=== PATIENT | male | born 2000 | race Caucasian/White ===

== ENCOUNTER 2024-11-23 19:26 | Outpatient (CLI) | payer OTHER, SELFPAY | END 2024-11-23 19:27 | disposition home or self-care (01) | PROVIDERS: Visit Provider Physician Assistant Medical | DX: F10.939 Alcohol use, unspecified with withdrawal, unspecified (principal); R07.89 Other chest pain | CPT/HCPCS: 80076 ==

== ENCOUNTER 2024-11-27 20:09 | Emergency (ER) | payer OTHER, SELFPAY ==
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
--- OUTSIDE RECORDS SUMMARY | 2024-11-27 20:11 | XMS_ITS | Clinical Summary ---
Author Organization [employer] [facility] Address [address] [place] [address] Care Team Providers Care Compliance Engineer Name Role Phone Clinic, No Pcp Or Primary Care Provider Unavaila ble Allergies No known active allergies Medications No known medications Social History Tobacco Use Types Packs/Day Years Used Date Smoking Tobacco: Never Smokeless Tobacco: Never Alcohol Use Standard Drinks/Week Comments Not Asked 0 (1 standard drink = 0.6 oz pur e alcohol) Sex and Gender Information Value Date Recorded Sex Assigned at Not on file Legal Sex Male 8:15 AM ORTHOTICS TECHNICIAN Gender Identity Not on file Sexual Orientation Not on file Obstetrics History Last Filed Vital Signs Vital Sign Reading Time Taken Comments Blood Pressure 134/80 05/04/2020 3:01 PM ORTHOTICS TECHNICIAN Pulse 106 05/04/2020 3:01 PM ORTHOTICS TECHNICIAN Temperature 36.5 C (97.7 F) 05/04/2020 3:01 PM ORTHOTICS TECHNICIAN Respiratory Rate 16 05/04/2020 3:01 PM ORTHOTICS TECHNICIAN Oxygen Saturation 97% 05/04/2020 3:01 PM ORTHOTICS TECHNICIAN Inhaled Oxygen Concentration - - Weight 103.4 kg (228 lb) 05/04/2020 3:00 PM ORTHOTICS TECHNICIAN Height - - Body Mass Index - - Plan of Treatment Health Maintenance Due Date Last Done Comments Tdap 2009 Depression screening for age 12+ 2010 HIV for age 15-65 2013 HPV series for age 9-26 (1 - Male 3-dose series) 2013 BMI (ht and wt on same day) for age 18+ 2016 Hepatitis C screening for ag e 18-79 2016 Hepatitis B series for 19+ ( 1 of 3 - 19+ 3-dose series) 2017 Tetanus booster 2018 COVID-19 vaccine series (2023-25 season) 2024 Influenza Vaccine (Season Ended) 2025 Pneumococcal series for age 6-49 Aged Out No longer eligible based on patient's age to complete this topic Insurance [facility] [employer] * Guarantor: SP [employer]AYL[employer] Account Type Relation to Patient Date of Phone Billing Address Personal/Family [address] [address] Care Teams Compliance Engineer Relationship Specialty Start Date End Date Clinic, No Pcp Or . PCP - General 04/30/20
[2024-11-27 20:49] VITALS: BP 138/84; PULSE 88; RESP 16; TEMP 36.9; O2SAT 98; BMI 29.8
--- NOTE | 2024-11-27 22:13 | ED.GENADULT ---
HPI - General Adult General Time Seen by Provider: 21:45 Date Seen: 11/27/24 Chief complaint: Unspecified Complaint, Adult Stated complaint: Alcohol DT Time Seen by Provider: 11/27/24 21:14 Source: patient and family Mode of arrival: ambulatory History of Present Illness HPI narrative: Patient is a 24 male with history of alcohol use who presents the emergency department for evaluation of alcohol withdrawals. Patient reports symptoms increased blood pressure, shakiness, chest pain, shortness of breath. Patient states he does have a history of alcohol use typically drinks approximately 15 beers a day however states that his last use was approximately 2 weeks ago. Patient states that since this time he has had intermittent episodes with the police are panic attacks, anxiety. Patient was seen at urgent care last Tuesday as well as earlier today due to episodes shakiness, chest pain, shortness of breath, elevated blood pressure. Patient was started on clonidine twice a day, and hydroxyzine as needed. Patient denies any history alcohol withdrawal seizures, DTs. Patient reports he continues to denies any other substance use. Patient states he has been able to get through the past 2 weeks without drinking without problems. Patient states he does not believe he is in alcohol withdrawals however his family and friends wanted him to come in. Patient does report he has had lots of stress with his girlfriend, recently found out that her ex was living with her, and they broke up yesterday. Patient reports increased depression, anxiety, and a broken heart. Patient denies any suicide ideation or plan however does note that he would like something to numb everything, and sometimes thinks whats the point. No other acute medical complaints. Patient reports having comprehensive labs at Urgent Care today which were all normal, patient was treated with 1 L of IV fluids as well as Benadryl which help lower his blood pressure and help him sleep. Patient also reports workup done last Tuesday at urgent care which was normal as well. Related Data Previous Rx's ?Medication ?Instructions ?Recorded clonidine HCl 0.1 mg tablet 0.1 mg PO QHS #30 tabs 11/23/24 hydroxyzine pamoate 25 mg capsule 25 - 50 mg (1 - 2 x 25 mg) PO Q4H 11/23/24 PRN sleep #60 caps ondansetron HCl 4 mg tablet 4 mg PO Q4H PRN nausea and 11/23/24 vomiting #10 tabs Allergies Allergy/AdvReac Type Severity Reaction Status Date / Time No Known Allergies Allergy Verified 11/27/24 20:52 Review of Systems Narrative: Past medical history, past surgical history, medications, allergies, family history, and social history were reviewed with the patient. No additional pertinent items. A medically appropriate review of systems was performed with pertinent positives and negatives noted in HPI, all other systems negative. PFSH PFS Social History Smoking Status: Never smoker Second hand tobacco smoke exposure: No How often do you have a drink containing alcohol: never AUDIT-C Alcohol total score: 0 Non-prescribed substance use: denies use Exam Narrative: Exam Narrative: General: Afebrile, no acute distress HEENT: Normocephalic, atraumatic, conjunctiva normal. MMM Neck: non-tender, supple Cardio: regular rate. regular rhythm Resp: Normal work of breathing, no respiratory distress, lungs clear bilaterally, no wheezing, rhonchi, rales Chest/Back: no visual signs of trauma, no midline tenderness, no CVA tenderness Abdomen: soft, non distension, no tenderness, no peritoneal signs Neuro: alert and fully oriented. CN II-XII grossly intact. Grossly normal strength and sensation in all extremities. MSK: no deformities. Normal range of motion Integumentary/Skin: no rash visualized, normal color Psych:appears sad, denies suicide ideation, plan, or intent to self harm, no hallucinations Const: Vital Signs, click to edit/add: Vital Signs - 24 hr 11/27/24 20:49 11/27/24 22:21 11/27/24 23:35 Temperature 98.4 F 98.4 F 98.4 F Pulse Rate [Pulse Oximeter] 88 81 81 Respiratory Rate 16 16 16 Blood Pressure [Ri t Upper Arm] 138/84 128/85 128/85 Pulse Oximetry 98 98 Oxygen Delivery Me thod Room Air Room Air Course Course ED Course: Patient is a 24 male with history of alcohol use who presents the emergency department for evaluation of alcohol withdrawals and anxiety, depression. Upon arrival patient is nontoxic appearing, afebrile, in distress. Blood pressure 132/84, heart rate 88, oxygen 90% on room air. Patient appears sad, denies any suicidal ideation homicidal ideation, intent to self-harm however patient does feel/stated what's the point. Patient has been seen in urgent care twice for similar symptoms, given the patient's last drink was 2 weeks ago low suspicious for acute withdrawals and patient should be over dangers of withdrawal. I suspect patient's symptoms are most likely secondary to recent stressors, break-up with his girlfriend, anxiety/panic attack. Patient is agreeable to a mental health evaluation. Patient had mental health evaluation/DEC assessment. Patient is able to contract for safety and no emergent indication for admission at this time. agree with outpatient management and outpatient therapy, counseling. Patient was provided with referrals for primary care follow-up for depression, anxiety, as well as alcohol use. Social work consult placed to call patient and help set up outpatient therapy/counseling. Patient to continue previously prescribed medications. Patient feels comfortable to discharge home with mother and friend. Patient with no clinical evidence of alcohol withdrawals and is 14 days out from his last drink. Patient agrees and feels comfortable discharge home. Return precautions discussed. Vital Signs Vital signs: Initial Vital Signs Temperature 98.4 F 11/27/24 20:49 Temperature Source Temporal Artery Scan 11/27/24 20:49 Pulse Rate 88 11/27/24 20:49 Respiratory Rate 16 11/27/24 20:49 Blood Pressure 138/84 11/27/24 20:49 Blood Pressure Mean 102 11/27/24 20:49 Blood Pressure Position Sitting 11/27/24 20:49 Pulse Oximetry 98 11/27/24 20:49 Oxygen Delivery Method Room Air 11/27/24 20:49 Vital Signs Temperature 98.4 F 11/27/24 20:49 Pulse Rate 88 11/27/24 20:49 Respiratory Rate 16 11/27/24 20:49 Blood Pressure 138/84 11/27/24 20:49 Pulse Oximetry 98 11/27/24 20:49 Oxygen Delivery Method Room Air 11/27/24 20:49 Temperature 98.4 F 11/27/24 23:35 Pulse Rate 81 11/27/24 23:35 Respiratory Rate 16 11/27/24 23:35 Blood Pressure 128/85 11/27/24 23:35 Pulse Oximetry 98 11/27/24 22:21 Oxygen Delivery Method Room Air 11/27/24 22:21 Medications Administered Medications: Discontinued Medications Generic Name Dose Route Start Last Admin Trade Name Freq PRN Reason Stop Dose Admin Hydroxyzine Pamoate 50 mg 11/27/24 22:22 11/27/24 22:29 Hydroxyzine Pamoate 25 Mg Capsule PO 11/27/24 22:23 50 mg ONCE ONE Administration Discharge Plan Discharge Clinical Impression: Anxiety Patient Disposition: Home, Self-Care Condition: Improved Additional Instructions: Please follow-up with the primary care provider the next few days for further evaluation, follow-up, medication management. Someone will call to schedule an appointment. Please continue home medications. A social worker health services will call you tomorrow to help schedule outpatient services - therapy, counseling, etc. Please return to the emergency department if you develop any worsening symptoms. It was a pleasure taking care of her today. We hope you feel better soon. Prescriptions: No Action clonidine HCl 0.1 mg tablet 0.1 mg PO QHS Qty: 30 1RF Rx Instructions: once nightly ondansetron HCl 4 mg tablet 4 mg PO Q4H PRN (Reason: nausea and vomiting) Qty: 10 0RF Rx Instructions: one tablet every 4 hours as needed for nausea hydroxyzine pamoate 25 mg capsule 25 - 50 mg PO Q4H PRN (Reason: sleep ) Qty: 60 1RF Rx Instructions: 1-2 capsules every 4 hours as needed for anxiety Follow Up/Referrals: Provider,Not a Local [Primary Care Provider, Family Practice] Stand Alone Forms: [facility] Info Instructions
[2024-11-27 22:21] VITALS: BP 128/85; PULSE 81; RESP 16; TEMP 36.9; O2SAT 98
[2024-11-27] MEDS: hydrOXYzine pamoate 25 MG CAPSULE 50 MG PO (22:29)
[2024-11-27 23:35] VITALS: BP 128/85; PULSE 81; RESP 16; TEMP 36.9
--- NOTE | 2024-11-28 15:33 | PC.SOCIAL ---
Social work: Per MD order on 11/27/24 for follow up phone call by social work to pt to provide resources for counseling and substance use, social media content manager attempted to call patient six times between 10:00am and 3:30pm today at phone number listed on chart, . Calls went immediately to a message stating the phone number you are trying to call is temporarily unavailable. Please try later, with no option to leave a message.
== END 2024-11-27 23:35 | disposition home or self-care (01) ==
PROVIDERS: Emergency Provider Emergency Medicine
DX: F41.8 Other specified anxiety disorders (principal); R07.9 Chest pain, unspecified; R06.02 Shortness of breath; R03.0 Elevated blood-pressure reading, without diagnosis of hypertension
CPT/HCPCS: 99283; 99285; Q3014; A9270